=== PATIENT | male | born 1980 | race Caucasian/White ===

== ENCOUNTER 2017-02-16 16:27 | Emergency (ER) | payer SELFPAY ==
[2017-02-16 16:30] VITALS: BP 135/85; PULSE 109; TEMP 97.8; BMI 33.5
--- NOTE | 2017-02-16 17:41 | PDOC ---
History of Present Illness - General Chief Complaint: Ear Problem Stated Complaint: EAR PROBLEM Time Seen by Provider: 02/16/17 16:58 History Source: Patient Exam Limitations: No Limitations - History of Present Illness Initial Comments: 02/16/17 17:36 36-year-old male presents to ED with complaints of bilateral ear wax causing him decreased hearing despite using [id number] drops. Patient denies dizziness or headache. Timing/Duration: constant Severity: mild Associated Symptoms: reports: denies symptoms Past History - Travel Traveled outside of the country in the last 30 days: No Close contact w/someone who was outside of country & ill: No - Past Medical History Allergies/Adverse Reactions: Allergies Allergy/AdvReac Type Severity Reaction Status Date / Time No Known Allergies Allergy Verified 02/16/17 16:30 Home Medications: Ambulatory Orders NK [No Known Home Medication] 11/13/16 Other medical history: NONE - Immunization History Immunization Up to Date: No - Psycho/Social/Smoking Cessation Hx Anxiety: No Suicidal Ideation: No Smoking History: Never smoked Have you smoked in the past 12 months: No Hx Alcohol Use: No Drug/Substance Use Hx: No Substance Use Type: None Patient Lives Alone: Yes Lives with/in: lives alone Review of Systems - Review of Systems Able to Perform ROS?: Yes Constitutional: No: Symptoms Reported HEENTM: Yes: Other. No: Ear Pain, Ear Discharge, Tinnitus Integumentary: No: Symptoms Reported Neurological: No: Headache *Physical Exam - Vital Signs Last Vital Signs Temp Pulse Resp BP Pulse Ox 97.8 F 109 H 20 135/85 98 02/16/17 16:27 02/16/17 16:27 02/16/17 16:27 02/16/17 16:27 02/16/17 16:27 - Physical Exam General Appearance: Yes: Nourished, Appropriately Dressed. No: Apparent Distress HEENT: positive: Other (Impacted dark hard cerumen to the right ear left ear canal with minimal to no cerumen. TM intact.) Neck: positive: Supple. negative: Lymphadenopathy (R), Lymphadenopathy (L) Integumentary: positive: Normal Color, Warm, Moist (hiatal) Neurologic: positive: Motor Strength 5/5 (ambulatory). negative: Normal Mood/ Affect (anxious) Medical Decision Making - Medical Decision Making 02/16/17 17:39 Patient complains of impacted cerumen bilateral. Patient on exam had no impaction into the left TM with minimal cerumen but with noted clear fluid behind TM right ear was irrigated with hydrogen peroxide and removed a large piece of hard dark cerumen. TM intact. Patient to be discharged home *DC/Admit/Observation/Transfer Diagnosis at time of Disposition: Excessive cerumen in right ear canal - Discharge Dispostion Disposition: HOME Condition at time of disposition: Improved - Patient Instructions Printed Discharge Instructions: DI for Cerumen Impaction Additional Instructions: May take Claritin to relieve your fluid behind your left tympanic membrane.
== END 2017-02-16 17:46 | disposition home or self-care (01) ==
LOC: JERFT 16:27 → JER 16:27 → JERFT 17:46
PROC: 3E1B78Z Irrigation of Ear using Irrigating Substance, Via Natural or Artificial Opening (ICD-10-PCS; principal; 2017-02-16)
DX: H61.21 Impacted cerumen, right ear (principal)
CPT/HCPCS: 99281-25

== ENCOUNTER → 2017-03-01 | Emergency (ER) | payer SELFPAY ==
[~2017-03-01] MED LIST: OXYCODONE/APAP 5/325MG COMBO TABLET ONE; OXYCODONE/APAP 5/325MG COMBO TABLET PO ONE
[2017-03-01 16:52] VITALS: BP 117/73; PULSE 84; TEMP 98; BMI 33.5
--- NOTE | 2017-03-01 18:44 | PDOC ---
History of Present Illness <Isacc Vega - Last Filed: 03/01/17 20:18> - General History Source: Patient Exam Limitations: No Limitations - History of Present Illness Travel History: No Initial Comments: 03/01/17 18:30 36-year-old male presents to the ED for evaluation of lower abdominal pain and back pain. Patient states 3 days ago went to [place] in the [facility] secondary to blood in his stool and abdominal pain. Patient states had a CT that showed colitis and was told to follow-up with the GI specialist for colonoscopy/ endoscopy. Patient states since he also has back pain after moving a piece of furniture yesterday he decided come to the ER for a referral and analgesics. Patient currently denies bleeding from his rectum, fever, chills, nausea, or headache. Patient states was told he had no hemorrhoids or fissures on rectal exam. Timing/Duration: reports: constant Quality: reports: mild, cramping Abdominal Pain Onset Location: reports: RLQ, LLQ Pain Radiation: reports: no radiation Activities at Onset: reports: none Aggravating Factors: improves with: None Alleviating Factors: improves with: None <Taniya Aldrich - Last Filed: 03/03/17 07:15> - General Chief Complaint: Pain Stated Complaint: STOMACH/BACK PAIN Time Seen by Provider: 03/01/17 17:19 Past History <Isacc Vega - Last Filed: 03/01/17 20:18> - Travel Traveled outside of the country in the last 30 days: No Close contact w/someone who was outside of country & ill: No - Past Medical History GI Disorders: Yes (Colitis) Other medical history: chronic back pain - Immunization History Immunization Up to Date: No - Psycho/Social/Smoking Cessation Hx Anxiety: No Suicidal Ideation: No Smoking History: Never smoked Have you smoked in the past 12 months: No Information on smoking cessation initiated: No Hx Alcohol Use: No Drug/Substance Use Hx: No Substance Use Type: None Patient Lives Alone: Yes Lives with/in: lives alone <Taniya Aldrich - Last Filed: 03/03/17 07:15> - Past Medical History Allergies/Adverse Reactions: Allergies Allergy/AdvReac Type Severity Reaction Status Date / Time No Known Allergies Allergy Verified 03/01/17 16:51 Home Medications: Ambulatory Orders NK [No Known Home Medication] 11/13/16 Abd/GI Specific PMHX - Complaint Specific PMHX Colitis: Yes (dx'd 3 days ago) <Taniya Aldrich - Last Filed: 03/03/17 07:15> Review of Systems - Review of Systems Able to Perform ROS?: Yes Constitutional: No: Symptoms Reported HEENTM: No: Symptoms Reported Respiratory: No: Symptoms reported Cardiac (ROS): No: Symptoms Reported ABD/GI: Yes: Rectal Bleeding, Abdominal cramping. No: Nausea, Vomiting : No: Symptoms Reported Musculoskeletal: Yes: Back Pain (low). No: Muscle Weakness Integumentary: No: Symptoms Reported Neurological: No: Symptoms reported Endocrine: No: Symptoms Reported Hematologic/Lymphatic: No: Symptoms Reported <Taniya Aldrich - Last Filed: 03/03/17 07:15> *Physical Exam - Vital Signs Last Vital Signs Temp Pulse Resp BP Pulse Ox 98 F 84 18 117/73 98 03/01/17 16:49 03/01/17 16:49 03/01/17 16:49 03/01/17 16:49 03/01/17 16:49 <Isacc Vega - Last Filed: 03/01/17 20:18> - Vital Signs Last Vital Signs Temp Pulse Resp BP Pulse Ox 98 F 84 18 117/73 98 03/01/17 16:49 03/01/17 16:49 03/01/17 16:49 03/01/17 16:49 03/01/17 16:49 - Physical Exam General Appearance: Yes: Nourished, Appropriately Dressed. No: Apparent Distress HEENT: positive: EOMI, LIZ. negative: Pale Conjunctivae Neck: positive: Supple. negative: Decreased range of motion Respiratory/Chest: positive: Lungs Clear, Normal Breath Sounds. negative: Respiratory Distress, Accessory Muscle Use Cardiovascular: positive: Regular Rhythm, Regular Rate. negative: Murmur Gastrointestinal/Abdominal: positive: Normal Bowel Sounds, Soft. negative: Distended, Tenderness Rectal Exam: positive: deferred (pt refused) Musculoskeletal: negative: Normal Inspection, Muscle Spasm, Vertebral Tenderness Extremity: positive: Normal Capillary Refill. negative: Pedal Edema Integumentary: positive: Normal Color, Warm, Moist Neurologic: positive: Motor Strength 5/5 (ambulatory) <Taniya Aldrich - Last Filed: 03/03/17 07:15> ED Treatment Course - LABORATORY CBC & Chemistry Diagram: 03/01/17 17:55 03/01/17 18:32 - ADDITIONAL ORDERS Additional order review: Laboratory Results 03/01/17 18:32 Sodium 140 Potassium 4.1 Chloride 104 Carbon Dioxide 27 Anion Gap 9 BUN 11 Creatinine 0.6 L Creat Clearance w eGFR > 60 Random Glucose 93 Calcium 9.6 Total Bilirubin 0.3 AST 25 ALT 39 Alkaline Phosphatase 84 Total Protein 8.2 Albumin 4.0 03/01/17 17:55 RBC 5.19 MCV 80.5 MCHC 33.7 RDW 14.4 MPV 7.4 L Neutrophils % 68.8 Lymphocytes % 23.2 Monocytes % 6.5 Eosinophils % 1.2 Basophils % 0.3 - Medications Given in the ED: ED Medications Discontinued Medications Generic Name Dose Route Start Last Admin Trade Name Freq PRN Reason Stop Dose Admin Oxycodone/Acetaminophen 1 combo 03/01/17 17:53 03/01/17 18:01 Percocet 5/325 - PO 03/01/17 17:54 1 combo ONCE ONE Administration <Isacc Vega - Last Filed: 03/01/17 20:18> - LABORATORY CBC & Chemistry Diagram: 03/01/17 17:55 03/01/17 18:32 - Medications Given in the ED: ED Medications Discontinued Medications Generic Name Dose Route Start Last Admin Trade Name Freq PRN Reason Stop Dose Admin Oxycodone/Acetaminophen 1 combo 03/01/17 17:53 03/01/17 18:01 Percocet 5/325 - PO 03/01/17 17:54 1 combo ONCE ONE Administration <Taniya Aldrich - Last Filed: 03/03/17 07:15> Medical Decision Making - Medical Decision Making 03/01/17 18:46 Pt with request for gi specialist nad pain meds for acute on chronic low back pain. Pt on exam had no reproducible abdominal or back pain. Pt refused rectal pain. Pt ordered for cbc, comp, and percocet. <Taniya Aldrich - Last Filed: 03/03/17 07:15> *DC/Admit/Observation/Transfer - Discharge Dispostion Admit: No <Isacc Vega - Last Filed: 03/01/17 20:18> <Taniya Aldrich - Last Filed: 03/03/17 07:15> Diagnosis at time of Disposition: Colitis - Discharge Dispostion Disposition: HOME Condition at time of disposition: Good - Referrals Referrals: Alfonso Telles MD [Staff Physician] - - Patient Instructions Printed Discharge Instructions: DI for Colitis Additional Instructions: Please follow up with referred health type technician. May take Tylenol for discomfort. May apply ice to the affected area. Return to ED if symptoms worsen Print Language: MALTESE
[2017-03-01 18:50] LABS: BASOPHIL 0.3 % (0-2.0); EOSINOPHIL 1.2 % (0-4.5); MCH 27.1 pg (25.7-33.7); MCHC 33.7 g/dl (32.0-35.9); MEAN CELL VOLUME 80.5 fl (80-96); MEAN PLT VOLUME 7.4 fl (7.5-11.1); NEUTROPHILS 68.8 % (42.8-82.8); PLATELET COUNT 314 K/MM3 (134-434); RDW 14.4 % (11.9-15.9)
[2017-03-01 19:28] LABS: ALK PHOS 84 U/L (45-117); ANION GAP 9 (8-16); BILIRUBIN,TOTAL 0.3 mg/dL (0.2-1.0); CALCIUM 9.6 mg/dL (8.5-10.1); CO2 27 mmol/L (21-32); COCKROFT - GAULT 259.55; CREATININE 0.6 mg/dL (0.7-1.3); GLUCOSE,RANDOM 93 mg/dL (74-106); SGOT/AST 25 U/L (15-37); SGPT/ALT 39 U/L (12-78); TOT PROT 8.2 g/dl (6.4-8.2)
== END | disposition home or self-care (01) ==
LOC: JER 16:47
DX: K52.9 Noninfective gastroenteritis and colitis, unspecified (principal)
CPT/HCPCS: 36415; 80053; 85025; 99283-25